=== PATIENT | male | born 1960 | race Caucasian/White ===

== ENCOUNTER 2016-07-16 14:51 | Emergency (ER) | payer OTHER ==
[~2016-07-16] VITALS: Ht 180.3 cm; Wt 84.9 kg
[2016-07-16 15:01] VITALS: TEMP 36.9; Ht 180.3 cm; Wt 84.9 kg
[2016-07-16] MEDS ORDERED: AMPICILLIN/SULBACTAM SOD INJ 3,000 MG in SODIUM CHLORIDE 0.9% 100ML 100 ML IV STA (15:24)
[2016-07-16] MEDS ORDERED: MoRPHine SULFATE 2 MG/ML CARP IV STA (15:24)
[2016-07-16] MEDS ORDERED: OPTIRAY 320 IV PRN (15:45)
[2016-07-16 15:53] LABS: BASO % 0.2 %; BASO ABS # 0.02 K/uL (0-0.2); COMPLETE YES; EOS % 0.4 %; HEMATOCRIT 37.1 % (42-52); IG% 0.2 %; LYMPH % 20.7 %; LYMPH ABS # 2.41 K/uL (1.2-3.4); MEAN CORPUSCULAR HEMOGLOBIN 31.6 pg (25-34); MEAN PLATELET VOLUME 9.1 fL (7.4-10.4); MONO % 12.6 %; NEUT % 65.9 %; PLATELET COUNT 238 K/uL (130-400); RED BLOOD COUNT 4.12 M/uL (4.7-6.1); WHITE BLOOD COUNT 11.66 K/uL (4.8-10.8)
[2016-07-16] MEDS ORDERED: AMOX500C3 PO (15:53)
[2016-07-16] MEDS ORDERED: IBUP-103 PO (15:55)
[2016-07-16] MEDS ORDERED: MELO7.5T5 PO (15:57)
[2016-07-16 16:11] LABS: BUN/CREATININE RATIO 19.8 (10-20); CALCIUM 9.4 mg/dl (8.5-10.1); CREATININE 1.1 mg/dl (0.60-1.40); POTASSIUM 4.2 mmol/L (3.5-5.1)
--- NOTE | 2016-07-16 16:57 | DIAGNOSTIC IMAGING REPORT ---
CT SOFT TISSUE NECK WITH CT DOSE: 533.92 mGy.cm CLINICAL HISTORY: Right facial edema with pain radiating into right neck TECHNIQUE: Helical images were acquired during intravenous administration of 117 cc of Optiray 320. COMPARISON STUDY: None. FINDINGS: The visualized portions of the lung apices are unremarkable. No thyroid masses are visualized. No salivary gland masses are visualized. There is equivocal minor right parotid gland hyperemia. No pathologically enlarged or necrotic cervical lymph nodes are visualized. There are no fluid collections suspicious for abscess. There is no evidence of airway compromise. No mucosal space masses are visualized. There is edema of the right masseter and buccinator muscles. There is overlying skin edema. There is a small right mandibular molar dental apical abscess. IMPRESSION: 1. Mildly prominent right cervical lymph nodes, likely reactive. No pathologically enlarged or necrotic nodes identified 2. Right-sided facial edema including edema of the right masseter and buccinator muscles. 3. Equivocal minor right parotid gland hyperemia. No masses identified. 4. Small right mid to normal lordotic dental apical abscess. 5. No evidence of abscess. Electronically signed by: Joshua Downey M.D. 07/16/2016 4:56 PM Dictated Date/Time: 07/16/2016 4:47 PM
[2016-07-16 17:23] VITALS: BP 122/77; PULSE 66; O2SAT 96
[2016-07-16] MEDS ORDERED: OXYC1TAB3 PO (17:41)
[2016-07-16] MEDS ORDERED: AMOX875T PO (17:41)
--- NOTE | 2016-07-16 17:43 | EMERGENCY ROOM VISIT NOTE ---
History First contact with patient: 15:14 Chief Complaint: DENTAL PAIN Stated Complaint: SWOLLEN NECK/TOOTH FROM ABSCESS Nursing Triage Summary: dental pain History of Present Illness The patient is a 55 year old male who presents to the Emergency Room via private vehicle with complaints of "swollen neck/tooth from abscess". Patient states that for the past few days he has had dental pain in the right lower jaw region that progressed to swelling last night and into the right side of the neck. He spoke with his dentist who told him to go to the ER, but is scheduled for root canal in [facility] this Thursday. Patient rates his pain as a 12/10 on Thursday, yesterday was 8 with persistent pain today. He was placed on amoxicillin 500 mg as well as pain medication and Advil with minimal relief of his pain and swelling. He feels that at times he'll become hot and cold and hot. He denies any allergies, drooling or voice changes. There is no difficulty breathing or involvement of the eyes. Review of Systems A complete 10-point Review of Systems was discussed with the patient, with pertinent positives and negatives listed in the History of Present Illness. All remaining Review of Systems questions can be considered negative unless otherwise specified. Past Medical/Surgical History Rheumatic fever Family History Unremarkable Social History Smoking Status: Never Smoker Social History: Patient lives at home with sister, is employed as a magician denies alcohol or tobacco use. Current/Historical Medications Scheduled Amoxicillin (Amoxil), 500 MG PO QID Amoxicillin & Pot Clavulanate (Augmentin 875-125 mg), 1 TAB PO BID Ibuprofen Tab (Advil), 400 MG PO DAILY Meloxicam (Mobic), 15 MG PO DAILY Scheduled PRN Oxycodone Ir (Roxicodone Ir), 1-2 TAB PO Q4H PRN for Pain Allergies Coded Allergies: No Known Allergies (Unverified , 07/16/16) Physical Exam Vital Signs Date Time Temp Pulse Resp B/P Pulse Ox O2 Delivery O2 Flow Rate FiO2 07/16/16 17:23 66 18 122/77 96 07/16/16 15:01 36.9 86 17 125/79 98 Room Air Physical Exam VITAL SIGNS - Vital signs and nursing notes were reviewed. He is afebrile, normotensive, non-tachycardic and is saturating well on room air 98%. GENERAL - 55-year-old male appearing his stated age who is in no acute distress. Communicates well with provider and answers questions appropriately. SKIN - Without rashes. There is edema to the right side of the lower jaw without erythema. HEAD - NC/AT. EYES - PERRL with EOMI bilaterally. Sclera anicteric. Palpebral conjunctiva pink and moist with no injection noted. No evidence of infection within the orbits. EARS - No deformities of external structures noted on gross examination bilaterally. No hemotympanum External auditory canals without discharge or otorrhea. Tympanic membranes pearly pereira without retraction or bulging. No fluid or purulent material visualized behind the TM. Handle of malleus, umbo, cone of light, pars tensa/flaccid all easily visualized. NOSE - Midline and without cyanosis. No epistaxis or purulent drainage noted. MOUTH/OROPHARYNX - Without perioral cyanosis. Buccal mucosa pink and moist and without leukoplakia. Tongue midline with equal elevation of palate bilaterally. No tonsillar hypertrophy, erythema, or exudates noted. Fair dentition noted. The airway is patent. No tonsillar hypertrophy or evidence of airway involvement. No signs of Kamran angina. The floor the mouth is nontender. There is no tenderness to palpation under the mid jaw. NECK - Neck with FROM. Supple to palpation. Minimal right lymphadenopathy noted. No nuchal rigidity. No meningeal signs. LUNGS - Chest wall symmetric without accessory muscle use, intercostals retractions, or central cyanosis. Normal vesicular breath sounds CTA B/L. No wheezes, rales, or rhonchi appreciated. CARDIAC - RRR with S1/S2. No murmur, rubs, or gallops appreciated. Medical Decision & Procedures ER Provider Diagnostic Interpretation: CT SOFT TISSUE NECK WITH CT DOSE: 533.92 mGy.cm CLINICAL HISTORY: Right facial edema with pain radiating into right neck TECHNIQUE: Helical images were acquired during intravenous administration of 117 cc of Optiray 320. COMPARISON STUDY: None. FINDINGS: The visualized portions of the lung apices are unremarkable. No thyroid masses are visualized. No salivary gland masses are visualized. There is equivocal minor right parotid gland hyperemia. No pathologically enlarged or necrotic cervical lymph nodes are visualized. There are no fluid collections suspicious for abscess. There is no evidence of airway compromise. No mucosal space masses are visualized. There is edema of the right masseter and buccinator muscles. There is overlying skin edema. There is a small right mandibular molar dental apical abscess. IMPRESSION: 1. Mildly prominent right cervical lymph nodes, likely reactive. No pathologically enlarged or necrotic nodes identified 2. Right-sided facial edema including edema of the right masseter and buccinator muscles. 3. Equivocal minor right parotid gland hyperemia. No masses identified. 4. Small right mid to normal lordotic dental apical abscess. 5. No evidence of abscess. Electronically signed by: Joshua Downey M.D. 07/16/2016 4:56 PM Dictated Date/Time: 07/16/2016 4:47 PM Laboratory Results 07/16/16 15:40 Red Blood Count 4.12, Mean Corpuscular Volume 90.0, Mean Corpuscular Hemoglobin 31.6, Mean Corpuscular Hemoglobin Concent 35.0, Mean Platelet Volume 9.1, Neutrophils (%) (Auto) 65.9, Lymphocytes (%) (Auto) 20.7, Monocytes (%) (Auto) 12.6, Eosinophils (%) (Auto) 0.4, Basophils (%) (Auto) 0.2, Neutrophils # (Auto ) 7.69, Lymphocytes # (Auto) 2.41, Monocytes # (Auto) 1.47, Eosinophils # (Auto ) 0.05, Basophils # (Auto) 0.02 07/16/16 15:40 Test 07/16/16 15:40 White Blood Count 11.66 K/uL (4.8-10.8) Red Blood Count 4.12 M/uL (4.7-6.1) Hemoglobin 13.0 g/dL (14.0-18.0) Hematocrit 37.1 % (42-52) Mean Corpuscular Volume 90.0 fL (80-100) Mean Corpuscular Hemoglobin 31.6 pg (25-34) Mean Corpuscular Hemoglobin Concent 35.0 g/dl (32-36) Platelet Count 238 K/uL (130-400) Mean Platelet Volume 9.1 fL (7.4-10.4) Neutrophils (%) (Auto) 65.9 % Lymphocytes (%) (Auto) 20.7 % Monocytes (%) (Auto) 12.6 % Eosinophils (%) (Auto) 0.4 % Basophils (%) (Auto) 0.2 % Neutrophils # (Auto) 7.69 K/uL (1.4-6.5) Lymphocytes # (Auto) 2.41 K/uL (1.2-3.4) Monocytes # (Auto) 1.47 K/uL (0.11-0.59) Eosinophils # (Auto) 0.05 K/uL (0-0.5) Basophils # (Auto) 0.02 K/uL (0-0.2) RDW Standard Deviation 40.9 fL (36.4-46.3) RDW Coefficient of Variation 12.4 % (11.5-14.5) Immature Granulocyte % (Auto) 0.2 % Immature Granulocyte # (Auto) 0.02 K/uL (0.00-0.02) Anion Gap 7.0 mmol/L (3-11) Est Creatinine Clear Calc Drug Dose 80.8 ml/min Estimated GFR () 87.1 Estimated GFR (Non- 75.2 BUN/Creatinine Ratio 19.8 (10-20) Calcium Level 9.4 mg/dl (8.5-10.1) Medications Administered Medications (Trade) Dose Ordered Sig/Deb Route Start Time Stop Time Status Last Admin Dose Admin Morphine Sulfate 2 mg 2 mg NOW STAT IV 07/16/16 15:24 07/16/16 15:28 DC 07/16/16 15:51 2 MG Ampicillin Sodium/ Sulbactam Sodium/ Sodium Chloride (Unasyn Inj/Nss 100ml) 108 ml @ 200 mls/hr NOW STAT IV 07/16/16 15:24 07/16/16 15:56 DC 07/16/16 15:49 200 MLS/HR Medical Decision Patient was seen and evaluated as above. After obtaining a thorough history and physical examination IV access was obtained and a CBC, PRP, CT of the neck with contrast, 2 mg of morphine through grams of Unasyn secondary to subjective and objective examination findings. There was concern for facial cellulitis that failed amoxicillin therefore 3 g of Unasyn were ordered. This was administered without difficulty. Patient tolerated morphine well with some relief of his pain. CT of the neck revealed evidence of edema that is clinically correlated to be cellulitis without drainable abscess at this time. He is to follow-up with his dentist on Thursday was given the number for an oral surgeon to contact. He is to return with any worsening of his symptoms and if persistence of symptoms in 24-48 hours as return. He is to return at any point with worsening of symptoms. He'll be prescribed a short term prescription of OxyIR for his pain as well as Augmentin for 10 days. He was educated upon worrisome symptoms in which to return, had questions answered prior to discharge , and was discharged home in good condition. CBC revealed slight leukocytosis and anemia as well as slight elevation BUN he is to have these repeated with his family doctor. In the evaluation and treatment of this patient the following differential diagnoses were entertained: Periapical abscess, facial abscess, cellulitis, Kamran angina, among others. [place] Drug Monitoring Program Search Results: patient reviewed within database, no issues identified Impression Primary Impression: Periapical abscess Additional Impressions: Anemia Facial edema Departure Information Dispostion Home / Self-Care Condition GOOD Prescriptions Oxycodone Ir (Roxicodone Ir) 5 Mg Tab 1-2 TAB PO Q4H Y for Pain, #15 TAB For Initial Treatment Prov: Dez Dinero PA-C 07/16/16 Amoxicillin & Pot Clavulanate (Augmentin 875-125 mg) 1 Tab Tab 1 TAB PO BID for 10 Days, #20 TAB Prov: Dez Dinero PA-C 07/16/16 Referrals No Doctor, Assigned (PCP) Sudarshan Helms D.D.S. Patient Instructions [facility] Additional Instructions You have been treated in the Emergency Department for Dental Pain. You have received pain medicine in the emergency department which impairs your ability to operate a vehicle. It is illegal for you to drive after receiving these medicines. You have been prescribed Oxy IR to be used for pain control. This is a narcotic medication. You cannot drive or consume alcohol while on this medicine. This medicine should only be used for pain that cannot be controlled with over-the- counter pain medicines. Please consider taking a stool softner with this medication. You were prescribed Augmentin to be taken Twice Yary. This is an antibiotic. All antibiotics have the potential to cause diarrhea. Stop this medication and contact a medical provider if you were to develop any significant adverse side effects including: wheezing, shortness of breath, passing out, vomiting, or a diffuse rash. Always take antibiotics as directed and COMPLETE the ENTIRE course regardless of the improvement of your symptoms. For pain control, you can use the following [id number] medicines (if >12 yo): - Regular strength (325mg/tab) Tylenol (acetaminophen) 2 tabs every 4-6 hours as needed. Do not exceed 12 tablets in a 24 hour period. Avoid taking more than 4 grams (4000 mg) of Tylenol per day. This includes any other sources of acetaminophen you may take on a regular basis. - Regular strength (200 mg/tab) Advil (ibuprofen) 1-2 tabs every 4-6 hours as needed. Do not exceed a dose of 3200 mg per day. Refrain from smoking cigarettes or using chewing tobacco until you have been evaluated by your dentist. Keeping beverages lukewarm and consuming soft foods can decrease your pain. Warm compresses over the affected area may offer some relief. You MUST seek evaluation of your dental pain by a dentist following your visit to the Emergency Department. The Emergency Department is not capable of treating dental issues long-term. You should call your dentist as soon as possible to make an appointment for evaluation of your dental pain. Return to the emergency department if you develop the following symptoms despite treatment course outlined above: fever, intractable pain, increased redness, swelling, or purulent discharge. Please follow-up with your dentist as you have indicated. You have been provided the number for an oral surgeon if you're unable to keep that appointment. It is recommended to call this number for follow-up. If the swelling would worsen in the next 24-48 hours or at any point please return to the emergency department as she may need additional IV antibiotics. Please have basic labs repeated with your family doctor. Please return to the emergency department with any new/concerning symptoms. Problem Qualifiers Additional Impressions:
== END 2016-07-16 18:12 | disposition home or self-care (01) ==
LOC: C.EDB 14:52 → C.EDD 18:12
DX: K04.7 Periapical abscess without sinus (principal); D64.9 Anemia, unspecified; R60.9 Edema, unspecified